=== PATIENT | female | born 1985 | race African-American/Black ===

== ENCOUNTER 2023-08-08 18:45 | Emergency (ER) | payer MEDICAID ==
[~2023-08-08] VITALS: Ht 177.8 cm; Wt 69.9 kg
[2023-08-08 18:49] VITALS: O2SAT 100
[2023-08-08] MEDS: LIDOCAINE HCL/PF 1% 10 MG/ML 5ML VIAL INFIL ONE (22:30)
[2023-08-08] MEDS ORDERED: TETANUS, DIPHTHERIA, PERTUSSIS VAC/PF 0.5ML (>10YR OLD) IM ONE (22:30)
[2023-08-08] MEDS ORDERED: AMOX1TAB16 MT (23:19)
[2023-08-08 23:30] VITALS: BP 146/95; PULSE 75; RESP 16; TEMP 98.7
[2023-08-08] MEDS: ACETAMINOPHEN 325MG TABLET PO ONE (23:30)
[2023-08-08] MEDS: METOCLOPRAMIDE HCL 10MG TABLET PO ONE (23:54)
== END 2023-08-09 00:15 | disposition home or self-care (01) ==
LOC: ER 18:57
DX: K04.7 Periapical abscess without sinus (principal)
CPT/HCPCS: 99283; 10060; J8597; J3490